=== PATIENT | male | born 1985 | race Caucasian/White ===

== ENCOUNTER 2017-12-13 21:40 | Day surgery (SDC) | payer SELFPAY ==
[2017-12-13] MEDS ORDERED: Fentanyl 100 MCG/2 ML VIAL ONE ×2 (22:38→22:40)
[2017-12-13 22:42] LABS: #Lymphocytes 2.1 thou/uL (1.20-3.40); #Monocytes 0.8 thou/uL (0.11-0.59); #Neutrophils 8.8 thou/uL (1.40-6.50); %Basophils 0.3 % (0.0-1.0); %Eosinophils 0.4 % (0.0-10.0); %Lymphocytes 17.6 % (21.0-51.0); %Monocytes 6.4 % (0.0-10.0); %Neutrophils 75.3 % (42.0-75.0); Hemoglobin 15.7 g/dL (14.0-18.0); Mean Corpuscular HGB CONC 33.4 g/dL (32.0-36.0); Mean Corpuscular Hemoglobin 34.5 pg (27.0-31.0); Mean Platelet Volume 7.2 fL (7.4-10.4); Platelet Count 338 thou/uL (130-400); RBC Distribution Width 11.7 % (11.5-14.5); Red Blood Cell (RBC) Count 4.56 mill/uL (4.70-6.10); White Blood Cell (WBC) Count 11.7 thou/uL (4.8-10.8)
[2017-12-13] MEDS ORDERED: Acetaminophen 1,000 MG in Premix Bag 1 BAG IVPB SCH (23:00)
[2017-12-13 23:04] LABS: ALT (SGPT) 11 U/L (8-55); AST (SGOT) 20 U/L (5-34); Albumin 4.4 g/dL (3.5-5.0); Alkaline Phosphatase 75 U/L (40-150); Anion Gap 12 mmol/L (10-20); BUN (Urea Nitrogen) 14 mg/dL (8.9-20.6); Bilirubin, Total 0.8 mg/dL (0.2-1.2); Calc. Creatinine Clearance 0 mL/min (70-130); Calcium 9.7 mg/dL (7.8-10.44); Carbon Dioxide 27 mmol/L (22-29); Chloride 103 mmol/L (98-107); Estimated GFR-MDRD 79; Globulin 2.8 g/dL (2.4-3.5); Glucose 97 mg/dL (70-105); Potassium 4.2 mmol/L (3.5-5.1); Protein, Total 7.2 g/dL (6.0-8.3); Sodium 138 mmol/L (136-145)
[2017-12-13] MEDS ORDERED: Tamsulosin HCl 0.4 MG CAP PO SCH (23:45)
[2017-12-13] MEDS ORDERED: HYDROmorphone 0.5 MG/0.5 ML SYRINGE ONE (23:54)
[2017-12-14] MEDS ORDERED: Ketorolac Tromethamine 30 MG/ML VIAL ONE (01:31)
[2017-12-14 01:58] LABS: Bilirubin Small (Negative); Blood, Urine Large (Negative); Clarity CLOUDY (Clear); Glucose, Urine (Dipstick) Negative (Negative); Leukocyte Small (Negative); Nitrite Negative (Negative); Protein, Urine (Dipstick) 100 mg/dL (Neg-Trace); Urobilinogen 0.2 mg/dL (0.2-1.0)
[2017-12-14 02:01] LABS: Bacteria/HPF None Seen HPF (None Seen); Hyaline Casts/LPF 4-6 HYALINE CAST LPF (0-3 Hyaline); Pathc Cast-AUWi Flag 1.16 (0-2.49); RBC/HPF GREATER THAN 50-TNTC HPF (0-3); Squamous Epithelial 0-3 HPF (0-3)
[2017-12-14 02:13] LABS: Renal Epithelial None Seen HPF (0-3); Transitional Epithelial NONE SEEN HPF (0-3); Trichomonas/HPF None Seen HPF (None Seen)
[2017-12-14] MEDS ORDERED: Ondansetron HCl/PF 4 MG/2 ML Vial ONE (03:40)
[2017-12-14] MEDS ORDERED: Promethazine HCl 25 MG/ML VIAL ONE (03:40)
[2017-12-14] MEDS ORDERED: Iothalamate Meglumine 60% 50 ML VIAL FS ONE (03:49)
[2017-12-14] MEDS ORDERED: Midazolam HCl 2 mg/2 ml Vial ONE (04:06)
[2017-12-14] MEDS ORDERED: Fentanyl 100 MCG/2 ML VIAL ONE (04:07)
--- NOTE | 2017-12-14 05:34 | HP ---
HISTORY OF PRESENT ILLNESS: This is a 32-year-old white male I was asked to see by the ER physician here. He developed left flank pain, nausea, vomiting, and the pain radiating to the left testicle. Earlier today, he went to [place], had a CAT scan done. CAT scan showed a 3 mm left mid ureteral st one with some left hydro. Left kidney was swollen compared to the right. He has a history of having a right reimplant by Dr. Rodriguez 18 years ago. I do not know that right kidney is necessary, atrophi c, but it may just be that the left one is swollen from a stone, but there are some size discrepancy. In [place], Urinalysis showed 1+ bacteria, many red cells, very few white cells. Urinalysis here showed a lot of red cells, some increased number of white cells and no bacteria. Culture has been se t up here. I do not know that one was done in [place]. His white blood cell count was pretty much in the normal range as was his hemoglobin, his creatinine that was normal at 1.1. There is no other abnormality noted on his CAT scan. He has never had a history of stones in the past. In the ER here , he has been given a number of different pain medications that have not allowed him to receive comfo rt from his pain and he has not stopped vomiting either and for this reason, he needs to go to the OR for emergent stent placement. PAST MEDICAL AND SURGICAL HISTORY: Apart from the reimplant, it is negative. ROUTINE MEDICATIONS: None. ALLERGIES: None. SOCIAL HISTORY: He does smoke. He does drink. PHYSICAL EXAMINATION: HEENT: Negative. NECK: Negative. LUNGS: Clear. CARDIAC: Without murmur. ABDOMEN: Tender left upper quadrant. There is left CVA tenderness. He has mild distention of the a bdomen. GENITOURINARY: He is circumcised. There are no lesions. There is no testicular mass or tenderness or abnormality on exam. IMPRESSION: Persistent colic, nausea and vomiting from a left ureteral stone. PLAN: Cystoscopy, stent placement.
--- NOTE | 2017-12-14 05:50 | OP ---
DATE OF PROCEDURE: 12/14/2017 PREOPERATIVE DIAGNOSIS: Left ureteral stone with colic. POSTOPERATIVE DIAGNOSIS: Left ureteral stone with colic. PROCEDURE PERFORMED: Cystoscopy, left retrograde, left stent placement. SURGEON: Dr. Nieto. ANESTHESIA: General. ESTIMATED BLOOD LOSS: Minimal. FINDINGS: There was no evidence of any stricture disease or prostatic urethral abnormality. The rig ht ureteral orifice has been reimplanted, it is at the midline above the trigone. The left ureteral orifice is in normal position. There was no bladder tumor, foreign body, or stone. Retrograde study showed a dilated ureter down to the distal ureter suggesting that the stone that was in the mid uret er on his CAT scan earlier in the day has moved down to the distal ureter. A stent was placed, 4.8 x 24 cm. No string was left attached to it. OPERATIVE TECHNIQUE: After obtaining written and verbal consent from the patient after receiving IV Ancef, he was taken to the operating suite. He was placed in supine position on his treatment table. PlexiPulses were placed on his lower extremities and turned on. He was given a general anesthetic and oral intubation. He was placed in the dorsal lithotomy position. He was sterilely prepped and d raped. He was positioned on the table, so that the application chemist film with fluoroscopy unit showed his abdom en, kidneys, ureters, bladder region. Cystoscopy was performed with a 22-Slovak sheath. This was we ll lubricated and passed under direct vision through the male urethra and into the urinary bladder wi th aid of 30-degree lens and a video camera and monitor. The bladder was filled and emptied a number of times and examined. A 5-Slovak Pollack catheter was placed in the left ureteral orifice and abou t 6 mL of contrast injected in a retrograde manner. It showed a dilated ureter down to the ureterove sical junction maybe a cm or 2 above it. A little bit of narrowing in the area where the stone was, but I think the stone is probably moved down distally. I went ahead and passed a 0.038 guidewire acr oss this and met a little resistance in the distal ureter, I think where the stone was and then went up easily on this. Over this, I placed a 4.8 x 24 cm double-J stent, pushed up into place with aid o f a pusher and positioned it with some grasper, so that its proximal end was coiled in the renal pelv is and its distal end was coiled in the bladder when the wire was removed. It was effluxing slightly bloody urine. At this point, the patient was taken out of the dorsal lithotomy position, awakened, extubated, and taken by stretcher to the recovery room.
--- NOTE | 2017-12-14 10:54 | RAD ---
KUB: Date: 12/14/17 HISTORY: 3.0 mm calculus in mid left ureter on CT scan of 12/13/17. FINDINGS/IMPRESSION: No suspicious calcifications are seen on this exam. Bowel gas pattern is unremarkable. POS: [facility]
--- NOTE | 2017-12-14 10:55 | RAD ---
LEFT RETROGRADE IVP: Date: 12/14/17 HISTORY: Left ureteric calculus and stent placement. FINDINGS/IMPRESSION: Nine intraoperative images during a left retrograde pyelogram demonstrate opacification of the left u reter and pelvicaliceal systems, and placement of a left ureteral stent. POS: JULES
[2017-12-14] MEDS ORDERED: Propofol 200 MG/20 ML VIAL ONE (15:47)
[2017-12-14] MEDS ORDERED: Lidocaine 1% PF 5 ML VIAL ONE (15:47)
[2017-12-14] MEDS ORDERED: Succinylcholine Chloride 20 MG/ML 10 ml SYRINGE FS ONE (15:47)
== END 2017-12-14 07:05 | disposition home or self-care (01) ==
LOC: ERS 21:40 → SDC/OP 12-14 05:12
PROVIDERS: ATTEND Urology
PROC: 0T778DZ Dilation of Left Ureter with Intraluminal Device, Via Natural or Artificial Opening Endoscopic (ICD-10-PCS; principal; 2017-12-14)
DX: N20.1 Calculus of ureter (principal)
CPT/HCPCS: 36415; 74018; 74420; 81003; 87086; C1758; C1769; J0131; J1170; J1885; J2001; J2250; J2405; J2550; J2704; J3010; Q9961

== ENCOUNTER 2017-12-20 11:50 | Outpatient (CLI) | payer OTHER ==
--- NOTE | 2017-12-20 13:46 | RAD ---
ABDOMEN 1 VIEW: HISTORY: Kidney stones. Ureteral stent. FINDINGS: Gas and stool overlie the colon. Small bowel gas pattern is nonspecific. Renal outlines are partial ly obscured. Double pigtail stent overlies the course of the left ureter. Phleboliths project over the pelvis. IMPRESSION: Left ureteral stent is in good radiographic position. POS: [facility]
== END 2017-12-20 11:51 | disposition home or self-care (01) ==
LOC: RAD 11:50
PROVIDERS: ATTEND Urology
DX: N20.0 Calculus of kidney (principal); Z96.0 Presence of urogenital implants
CPT/HCPCS: 74018

== ENCOUNTER 2017-12-23 06:23 | Day surgery (SDC) | payer SELFPAY ==
[2017-12-20 15:28] VITALS: BMI 26.2
[2017-12-23] MEDS ORDERED: Iothalamate Meglumine 60% 50 ML VIAL FS ONE (06:32)
[2017-12-23] MEDS ORDERED: Fentanyl 250 MCG/5 ML VIAL ONE (07:25)
[2017-12-23] MEDS ORDERED: Midazolam HCl 2 mg/2 ml Vial ONE (07:25)
[2017-12-23] MEDS ORDERED: Levofloxacin 500 mg/D5W 100 ml Premix Bag ONE (07:29)
[2017-12-23] MEDS ORDERED: SUGAMMADEX SODIUM 200 MG/2 ML VIAL ONE (09:01)
--- NOTE | 2017-12-23 09:27 | OP ---
DATE OF PROCEDURE: 12/23/2017 SURGEON: Chip Nieto M.D. PREOPERATIVE DIAGNOSIS: Left ureteral stone, left stent. POSTOPERATIVE DIAGNOSIS: Left ureteral stone, left stent. PROCEDURE: Cystoscopy, left rigid ureteroscopy, stone retrieval, and left retrograde pyelogram succe ssfully removing the stone. ESTIMATED BLOOD LOSS: Minimal. FINDINGS: There was a distal left ureteral stone was removed intact with a nitinol basket. Retrogra de study showed no extravasation or persistent filling defect or other stone. Stent was not replaced . OPERATIVE TECHNIQUE: After obtaining written consent from the patient after receiving IV antibiotics , he was taken to the operating suite. He was placed in supine position on the treatment table. Ple xiPulses were placed on his lower extremities and turned on. He was given a general anesthetic, oral obturator intubation. He was placed in the dorsal lithotomy position, sterilely prepped and draped. Cystoscopy was performed with a 22 Mongolian. This was well lubricated, passed under direct vision th rough the male urethra into the urinary bladder with aid of a 30-degree lens and video camera and mon itor. The bladder was filled and emptied a number of times. The distal end of the indwelling double -J stent was grasped and brought out through the urethral meatus. A 0.038 guidewire was fed up throu gh this and up into the region of the renal pelvis and the stent was removed intact. A small caliber graduated rigid ureteroscope was brought in, passed in direct vision with aid of a video camera and monitor through the male urethra into the bladder and up adjacent to the guidewire and the left urete ral orifice. This stone was seen just in the distal ureter. It was grasped with a nitinol basket, r emoved intact. At this point, the guidewire was backloaded through the cystoscope. A Pollack was pl aced up to about mid ureter. The guidewire was removed. We injected contrast through this filling o ut the entire collecting system, a little air bubble seen up in the area of the renal pelvis. No oth er stones were seen. No extravasation was seen. When the Pollack was removed the ureter appeared to drain well. At this point, we made a decision to leave the stent out. The patient had his bladder emptied, the instruments were moved. He was taken out of dorsal lithotomy position, awakened, extuba audrey, and taken by stretcher to the recovery room.
--- NOTE | 2017-12-23 10:16 | RAD ---
IVP RETROGRADE STUDY: Eight images from the OR are presented during retrograde study by Dr. Dickson. Uteroscopy procedure. Initial imaging showed catheter in the left ureter. Opacification of the left collecting structures noted. Two rounded filling defects in the lower ureter may represent air bubbles. POS: [facility]
[2017-12-23] MEDS ORDERED: Ondansetron HCl/PF 4 MG/2 ML Vial ONE (17:19)
[2017-12-23] MEDS ORDERED: Ketorolac Tromethamine 30 MG/ML VIAL ONE (17:19)
[2017-12-23] MEDS ORDERED: Propofol 200 MG/20 ML VIAL ONE (17:19)
[2017-12-23] MEDS ORDERED: Glycopyrrolate 0.2 MG/ML 5 ML SYRINGE ONE (17:19)
[2017-12-23] MEDS ORDERED: Lidocaine 1% PF 5 ML VIAL ONE (17:19)
== END 2017-12-23 10:20 | disposition home or self-care (01) ==
LOC: SDC 06:23
PROVIDERS: ATTEND Urology
PROC: 0T778DZ Dilation of Left Ureter with Intraluminal Device, Via Natural or Artificial Opening Endoscopic (ICD-10-PCS; principal; 2017-12-23)
PROC: 0TC78ZZ Extirpation of Matter from Left Ureter, Via Natural or Artificial Opening Endoscopic (ICD-10-PCS; principal; 2017-12-23)
DX: N20.1 Calculus of ureter (principal)
CPT/HCPCS: 74420; 82365; 88300; C1758; J1885; J1956; J2001; J2250; J2405; J2704; J3010; Q9961

== ENCOUNTER 2021-05-19 11:27 | Inpatient (IN) | payer SELFPAY ==
[2021-05-19] MEDS ORDERED: Fentanyl 100 MCG/2 ML VIAL ONE (11:59)
[2021-05-19] MEDS ORDERED: Dexamethasone 4 mg/ml Vial ONE (12:00)
[2021-05-19] MEDS ORDERED: Ketorolac Tromethamine 30 MG/ML VIAL ONE (12:00)
[2021-05-19] MEDS ORDERED: Morphine 4 MG/ML VIAL ONE (13:07)
[2021-05-19] MEDS ORDERED: Lorazepam 2 MG/ML VIAL ONE (13:13)
[2021-05-19 13:38] LABS: #Basophils 0.1 thou/uL (0.0-0.2); #Eosinphils 0.1 thou/uL (0.0-0.7); #Lymphocytes 1.9 thou/uL (1.20-3.40); #Monocytes 0.4 thou/uL (0.11-0.59); #Neutrophils 7.6 thou/uL (1.40-6.50); %Basophils 0.7 % (0.0-1.0); %Eosinophils 1.3 % (0.0-10.0); %Lymphocytes 18.4 % (21.0-51.0); %Monocytes 3.8 % (0.0-10.0); %Neutrophils 75.7 % (42.0-75.0); Mean Corpuscular HGB CONC 32.5 g/dL (32.0-36.0); Mean Platelet Volume 7.1 fL (7.4-10.4); Platelet Count 236 thou/uL (130-400); RBC Distribution Width 11.6 % (11.5-14.5); Red Blood Cell (RBC) Count 3.82 mill/uL (4.70-6.10)
[2021-05-19 14:00] LABS: INR-International Normal Ratio 1.2; PTT 32.1 sec (22.9-36.1); Prothrombin Time 14.9 sec (12.0-14.7)
[2021-05-19 14:06] LABS: ALT (SGPT) Less than 7 U/L (8-55); AST (SGOT) 11 U/L (5-34); Albumin 3.7 g/dL (3.5-5.0); Alkaline Phosphatase 58 U/L (40-110); Anion Gap 8 mmol/L (10-20); BUN (Urea Nitrogen) 19 mg/dL (8.9-20.6); Bilirubin, Total 0.4 mg/dL (0.2-1.2); Calc. Creatinine Clearance 0 mL/min (70-130); Calcium 8.1 mg/dL (7.8-10.44); Carbon Dioxide 25 mmol/L (22-29); Chloride 109 mmol/L (98-107); Globulin 2.2 g/dL (2.4-3.5); Glucose 98 mg/dL (70-105); Potassium 3.9 mmol/L (3.5-5.1); Protein, Total 5.9 g/dL (6.0-8.3); Sodium 138 mmol/L (136-145)
[2021-05-19] MEDS ORDERED: Ondansetron PF 4 MG/2 ML Vial IVP PRN (15:46)
[2021-05-19] MEDS ORDERED: HYDROcodone/Acetaminophen 5/325 mg Tablet PO PRN ×2 (15:46)
[2021-05-19] MEDS ORDERED: Lorazepam 2 MG/ML VIAL SLOW IVP PRN (16:02)
[2021-05-19] MEDS ORDERED: traMADol HCl 50 MG TAB PO PRN (16:06)
[2021-05-19] MEDS: Ketorolac Tromethamine 30 MG/ML VIAL IVP PRN (17:40)
[2021-05-19 17:44] VITALS: BMI 23.1
[2021-05-19] MEDS: Cyclobenzaprine 10 MG TAB PO PRN (20:11)
[2021-05-19] MEDS ORDERED: Fentanyl 100 MCG/2 ML VIAL SLOW IVP PRN (20:33)
[2021-05-19] MEDS ORDERED: Meperidine HCl/PF 25 MG/ML VIAL IM PRN (20:38)
[2021-05-19] MEDS ORDERED: Nicotine 21 MG PATCH TD SCH (21:00)
[2021-05-20] MEDS: Ketorolac Tromethamine 30 MG/ML VIAL IVP PRN ×2 (05:53→12:36)
[2021-05-20] MEDS: Cyclobenzaprine 10 MG TAB PO PRN ×2 (05:58→12:34)
[2021-05-20 06:16] LABS: #Lymphocytes 2.1 thou/uL (1.20-3.40); #Monocytes 0.9 thou/uL (0.11-0.59); %Basophils 0.1 % (0.0-1.0); %Eosinophils 0.1 % (0.0-10.0); %Lymphocytes 14.8 % (21.0-51.0); %Monocytes 6.1 % (0.0-10.0); %Neutrophils 78.8 % (42.0-75.0); Hemoglobin 14.1 g/dL (14.0-18.0); Mean Corpuscular HGB CONC 33.8 g/dL (32.0-36.0); Mean Corpuscular Hemoglobin 35.5 pg (27.0-31.0); Mean Platelet Volume 7.4 fL (7.4-10.4); Platelet Count 262 thou/uL (130-400); RBC Distribution Width 11.5 % (11.5-14.5); Red Blood Cell (RBC) Count 3.96 mill/uL (4.70-6.10)
[2021-05-20 06:26] LABS: Anion Gap 11 mmol/L (10-20); BUN (Urea Nitrogen) 21 mg/dL (8.9-20.6); Calc. Creatinine Clearance 130 mL/min (70-130); Calcium 8.9 mg/dL (7.8-10.44); Carbon Dioxide 25 mmol/L (22-29); Chloride 107 mmol/L (98-107); Glucose 125 mg/dL (70-105); Potassium 3.9 mmol/L (3.5-5.1); Sodium 139 mmol/L (136-145)
[2021-05-20] MEDS ORDERED: Nicotine 21 MG PATCH TD SCH (09:00)
[2021-05-20] MEDS ORDERED: Dexamethasone 4 mg/ml Vial SLOW IVP SCH (09:00)
[2021-05-20] MEDS ORDERED: Magnevist 469MG/ML 20 ML VIAL ONE (11:01)
[2021-05-20] MEDS ORDERED: HYDROmorphone 0.5 MG/0.5 ML SYRINGE SLOW IVP PRN (13:32)
[2021-05-20] MEDS ORDERED: Gabapentin 100 MG CAP PO SCH (15:00)
[2021-05-20 15:41] VITALS: BP 123/69; TEMP 97.6
== END 2021-05-20 18:40 | disposition home or self-care (01) | DRG 552 ==
LOC: ERS 11:27 → SJJU 14:11 → SURG B 16:02 → OBSVTOIN 05-20 13:05
PROVIDERS: ADMIT Internal Medicine; ATTEND Internal Medicine
DX: M51.27 Other intervertebral disc displacement, lumbosacral region (principal); M51.26 Other intervertebral disc displacement, lumbar region; F17.210 Nicotine dependence, cigarettes, uncomplicated
CPT/HCPCS: 36415; 72131; 72158; 80048; 80053; 85025; 85610; 85730; 96374; 96375; 96376; A9579; G0378; J1100; J1170; J1885; J2060; J2175; J2270; J3010